=== PATIENT | male | born 1940 | race Caucasian/White ===

== ENCOUNTER 2018-05-10 18:34 | Day surgery (SDC) | payer MEDICARE, BC ==
[2018-05-10] MEDS ORDERED: Sodium Chloride 0.9% 10 ML Syringe FLUSH PRN (19:10)
[2018-05-10] MEDS ORDERED: Glucagon,Human Recombinant 1 MG Vial IVPUSH ONE (19:10)
[2018-05-10] MEDS ORDERED: LORazepam 2 MG/ML SDV IVPUSH ONE (19:10)
--- NOTE | 2018-05-10 20:19 | EDM.PDOC ---
ED HPI GENERAL MEDICAL PROBLEM - General Chief Complaint: Gastrointestinal Problem Stated Complaint: SOMETHING INT THROAT Time Seen by Provider: 05/10/18 18:45 Source of Information: Reports: Patient History Limitations: Reports: No Limitations - History of Present Illness INITIAL COMMENTS - FREE TEXT/NARRATIVE: 77-year-old male sent from [facility] for evaluation and treatment of impacted food bolus. Reportedly the patient had some steak around 1300 today. Since then he has been experiencing a sensation that he describes as something being stuck in his throat. He has been unable to swallow secretions. Was seen at the [facility] and referred to us. Surgeon was made aware. Asked that he be seen in the ER for IV Ativan and glucagon. Upon my inspection the patient is not spitting up any secretions. he states that the sensation is improved. He denies any chest pain or trouble breathing at this point. Reports since leaving [facility] about an hour and a half ago the symptoms have improved. Patient reports he has never had anything like this before. He has never had an EGD before. Onset: Today, Sudden - Related Data Allergies Allergy/AdvReac Type Severity Reaction Status Date / Time No Known Allergies Allergy Verified 05/10/18 18:42 Home Meds: Home Meds Aspirin [Adult Low Dose Aspirin EC] 81 mg PO DAILY 05/10/18 [History] Past Medical History HEENT History: Reports: Cataract - Past Surgical History Other Musculoskeletal Surgeries/Procedures:: archilles tendon repair Social & Family History - Tobacco Use Smoking Status *Q: Never Smoker - Caffeine Use Caffeine Use: Reports: Tea - Recreational Drug Use Recreational Drug Use: No ED ROS GENERAL - Review of Systems Review Of Systems: See Below Respiratory: Denies: Shortness of Breath Cardiovascular: Denies: Chest Pain GI/Abdominal: Reports: Other (earlier was unable to swallow secretions, now improved) ED EXAM, GI/ABD - Physical Exam Exam: See Below Exam Limited By: No Limitations General Appearance: Alert, WD/WN, No Apparent Distress Neck: Normal Inspection Respiratory/Chest: No Respiratory Distress, Lungs Clear, Normal Breath Sounds Cardiovascular: Normal Peripheral Pulses, Regular Rate, Rhythm, No Murmur GI/Abdominal Exam: Soft, Non-Tender Neurological: Alert, Oriented, Normal Cognition Psychiatric: Normal Affect, Normal Mood Skin Exam: Warm, Dry, Normal Color Course - Vital Signs Last Recorded V/S: Last Vital Signs Temp 99.0 F 05/10/18 22:20 Pulse 73 05/10/18 21:56 Resp 18 05/10/18 22:20 BP 142/89 H 05/10/18 22:20 Pulse Ox 94 L 05/10/18 22:20 - Orders/Labs/Meds Orders: Active Orders 24 hr Category Date Time Status Patient Status [ADT] Routine ADT 05/10/18 20:24 Active Communication Order [RC] ROUTINE Care 05/10/18 21:55 Active Cooling Warming Measures [RC] ASDIRECTED Care 05/10/18 21:55 Active Notify Provider [RC] ASDIRECTED Care 05/10/18 21:55 Active Oxygen Therapy [RC] ASDIRECTED Care 05/10/18 21:55 Active Peripheral IV Care [RC] . DIRECTED Care 05/10/18 19:10 Active Pulse Oximetry [RC] ASDIRECTED Care 05/10/18 21:55 Active Ready for Discharge [RC] PER UNIT ROUTINE Care 05/10/18 21:57 Active Vital Signs [RC] Q15M Care 05/10/18 21:55 Active Sodium Chloride 0.9% [Saline Flush] Med 05/10/18 19:10 Active 10 ml FLUSH ASDIRECTED PRN fentaNYL [Sublimaze] Med 05/10/18 21:55 Active 50 mcg IVPUSH Q5M PRN Peripheral IV Insertion Adult [OM.PC] Routine Oth 05/10/18 19:10 Ordered Schedule Procedure [COMM] Stat Oth 05/10/18 20:23 Ordered Medication Orders Fentanyl (Sublimaze) 50 mcg IVPUSH Q5M PRN PRN Reason: Pain Sodium Chloride (Saline Flush) 10 ml FLUSH ASDIRECTED PRN PRN Reason: Keep Vein Open Last Admin: 05/10/18 19:20 Dose: 10 ml Meds: Medications Generic Name Dose Route Start Last Admin Trade Name Freq PRN Reason Stop Dose Admin Fentanyl 50 mcg 05/10/18 21:55 Sublimaze IVPUSH Q5M PRN Pain Sodium Chloride 10 ml 05/10/18 19:10 05/10/18 19:20 Saline Flush FLUSH 10 ml ASDIRECTED PRN Administration Keep Vein Open Discontinued Medications Generic Name Dose Route Start Last Admin Trade Name Freq PRN Reason Stop Dose Admin Fentanyl Confirm 05/10/18 20:42 Sublimaze Administered 05/10/18 20:43 Dose 100 mcg .ROUTE .STK-MED ONE Glucagon 1 mg 05/10/18 19:10 05/10/18 19:20 Glucagen IVPUSH 05/10/18 19:11 1 mg ONETIME ONE Administration Lidocaine HCl Confirm 05/10/18 20:42 Xylocaine-Mpf 1% Administered 05/10/18 20:43 Dose 4 mls @ as directed .ROUTE .STK-MED ONE Lorazepam 1 mg 05/10/18 19:10 05/10/18 19:20 Ativan IVPUSH 05/10/18 19:11 1 mg ONETIME ONE Administration Ondansetron HCl Confirm 05/10/18 20:42 Zofran Administered 05/10/18 20:43 Dose 4 mg .ROUTE .STK-MED ONE Propofol Confirm 05/10/18 20:42 Diprivan 20 Ml Administered 05/10/18 20:43 Dose 200 mg .ROUTE .STK-MED ONE Rocuronium [place] Confirm 05/10/18 20:42 Zemuron Administered 05/10/18 20:43 Dose 50 mg .ROUTE .STK-MED ONE Succinylcholine Chloride Confirm 05/10/18 20:42 Succinylcholine In Ns Pf Administered 05/10/18 20:43 Dose 100 mg .ROUTE .STK-MED ONE - Re-Assessments/Exams Free Text/Narrative Re-Assessment/Exam: 05/10/18 20:29 Patient was given some Sprite to Sip on. He states that he can feel that it was fizzling in his chest and he began to spit up. He was then given an IV and some Ativan and glucagon and encouraged to try the Sprite about 20 to 30 minutes later. He could still not swallow Sprite. This was discussed with Dr. Hardwick who was already aware of the case. she'll take the OR for an EGD for an impacted food bolus. Departure - Departure Time of Disposition: 20:30 Disposition: DC/Tfer to [facility] Condition: Fair Clinical Impression: Food impaction of esophagus - Discharge Information *PRESCRIPTION DRUG MONITORING PROGRAM REVIEWED*: No *COPY OF PRESCRIPTION DRUG MONITORING REPORT IN PATIENT RADHA: No - My Orders Last 24 Hours: My Active Orders 05/10/18 19:10 Peripheral IV Care [RC] . DIRECTED Sodium Chloride 0.9% [Saline Flush] 10 ml FLUSH ASDIRECTED PRN Peripheral IV Insertion Adult [OM.PC] Routine - Assessment/Plan Last 24 Hours: My Active Orders 05/10/18 19:10 Peripheral IV Care [RC] . DIRECTED Sodium Chloride 0.9% [Saline Flush] 10 ml FLUSH ASDIRECTED PRN Peripheral IV Insertion Adult [OM.PC] Routine
--- NOTE | 2018-05-10 20:32 | PCM.PREANE ---
Preanesthetic Assessment - Anesthesia/Transfusion/Family Hx Anesthesia History: Prior Anesthesia Without Reaction Family History of Anesthesia Reaction: No Transfusion History: No Prior Transfusion(s) - Review of Systems General: Malaise Pulmonary: No Symptoms Cardiovascular: No Symptoms Gastrointestinal: Abdominal Pain Neurological: No Symptoms Other: Reports: Throat Pain - Physical Assessment NPO Status Date: 05/10/18 NPO Status Time: 13:00 Pulse: 73 O2 Sat by Pulse Oximetry: 100 Respiratory Rate: 12 Blood Pressure: 165/87 Temperature: 36.9 C Vital Signs: Last Vital Signs Temp 36.9 C 05/10/18 18:42 Pulse 73 05/10/18 18:42 Resp 12 05/10/18 18:42 BP 165/87 H 05/10/18 18:42 Pulse Ox 100 05/10/18 18:42 Height: 1.73 m Weight: 84.368 kg ASA Class: 2 Mental Status: Alert & Oriented x3 Airway Class: Mallampati = 2 Dentition: Reports: Partial (top), Missing Tooth/Teeth Thyro-Mental Finger Breadths: 3 Mouth Opening Finger Breadths: 2 ROM/Head Extension: Full Lungs: Clear to Auscultation, Normal Respiratory Effort Cardiovascular: Regular Rate, Regular Rhythm - Allergies Allergies/Adverse Reactions: Allergies Allergy/AdvReac Type Severity Reaction Status Date / Time No Known Allergies Allergy Verified 05/10/18 18:42 - Blood Blood Available: No Product(s) Available: None - Anesthesia Plan Pre-Op Medication Ordered: None - Acknowledgements Anesthesia Type Planned: General Anesthesia Pt an Appropriate Candidate for the Planned Anesthesia: Yes Alternatives and Risks of Anesthesia Discussed w Pt/Guardian: Yes Pt/Guardian Understands and Agrees with Anesthesia Plan: Yes PreAnesthesia Questionnaire HEENT History: Reports: Cataract - Past Surgical History Other Musculoskeletal Surgeries/Procedures:: archilles tendon repair - SUBSTANCE USE Smoking Status *Q: Never Smoker Tobacco Use Within Last Twelve Months: No Second Hand Smoke Exposure: No Days Per Week of Alcohol Use: 1 Number of Drinks Per Day: 0 Total Drinks Per Week: 0 Recreational Drug Use History: No - HOME MEDS Home Medications: Home Meds Aspirin [Adult Low Dose Aspirin EC] 81 mg PO DAILY 05/10/18 [History] - CURRENT (IN HOUSE) MEDS Current Meds: Current Medications Sodium Chloride (Saline Flush) 10 ml FLUSH ASDIRECTED PRN PRN Reason: Keep Vein Open Last Admin: 05/10/18 19:20 Dose: 10 ml Discontinued Medications Glucagon (Glucagen) 1 mg IVPUSH ONETIME ONE Stop: 05/10/18 19:11 Last Admin: 05/10/18 19:20 Dose: 1 mg Lorazepam (Ativan) 1 mg IVPUSH ONETIME ONE Stop: 05/10/18 19:11 Last Admin: 05/10/18 19:20 Dose: 1 mg
--- NOTE | 2018-05-10 20:37 | PCM.HP ---
H&P History of Present Illness - General Date of Service: 05/10/18 Admit Problem/Dx: Admission Diagnosis/Problem Admission Diagnosis/Problem Foreign body in digestive tract Source of Information: Patient, Provider History Limitations: Reports: No Limitations - History of Present Illness Initial Comments - Free Text/Narative: The patient is a 77-year-old gentleman who presents from an outside facility. He reports having Salad and steak earlier today, after which he felt it became lodged in his esophagus. He is having discomfort in the substernal area. This occurs when he attempts to eat or drink anything. When he tries to drink fluids , he has regurgitation and coughing. He was feeling fine before this episode occurred. He has no previous episodes similar to this - Related Data Allergies/Adverse Reactions: Allergies Allergy/AdvReac Type Severity Reaction Status Date / Time No Known Allergies Allergy Verified 05/10/18 18:42 Home Medications: Home Meds Aspirin [Adult Low Dose Aspirin EC] 81 mg PO DAILY 05/10/18 [History] Past Medical History HEENT History: Reports: Cataract - Past Surgical History Other Musculoskeletal Surgeries/Procedures:: archilles tendon repair Social & Family History - Family History Oncologic: Reports: Colon, Leukemia - Tobacco Use Smoking Status *Q: Never Smoker - Caffeine Use Caffeine Use: Reports: Tea - Recreational Drug Use Recreational Drug Use: No H&P Review of Systems - Review of Systems: Review Of Systems: See Below General: Reports: No Symptoms HEENT: Reports: No Symptoms Pulmonary: Reports: No Symptoms Cardiovascular: Reports: No Symptoms Gastrointestinal: Reports: Other (see HPI) Genitourinary: Reports: No Symptoms Musculoskeletal: Reports: Foot Pain Skin: Reports: No Symptoms Neurological: Reports: No Symptoms Exam - Exam Exam: See Below - Vital Signs Vital Signs: Last Vital Signs Temp 36.9 C 05/10/18 18:42 Pulse 73 05/10/18 18:42 Resp 12 05/10/18 18:42 BP 165/87 H 05/10/18 18:42 Pulse Ox 100 05/10/18 18:42 Weight: 84.368 kg - Exam Quality Assessment: No: Supplemental Oxygen General: Alert, Oriented HEENT: Conjunctiva Clear, EOMI Neck: Supple Lungs: Normal Respiratory Effort GI/Abdominal Exam: Soft, Non-Tender, No Distention Extremities: Normal Inspection Neurological: Cranial Nerves Intact Neuro Extensive - Mental Status: Alert, Oriented x3, Normal Mood/Affect *Q Meaningful Use (ADM) - VTE Risk Assess *Q Each Risk Factor Represents 1 Point: Minor Surgery Planned Total Score 1 Point Risk Factors: 1 Each Risk Factor Represents 3 Points: Age 75 Years or Greater Total Score 3 Point Risk Factors: 3 Problem List Initiated/Reviewed/Updated: Yes Orders Last 24hrs: Active Orders 24 hr Category Date Time Status Patient Status [ADT] Routine ADT 05/10/18 20:24 Active Peripheral IV Care [RC] . DIRECTED Care 05/10/18 19:10 Active Sodium Chloride 0.9% [Saline Flush] Med 05/10/18 19:10 Active 10 ml FLUSH ASDIRECTED PRN Peripheral IV Insertion Adult [OM.PC] Routine Oth 05/10/18 19:10 Ordered Schedule Procedure [COMM] Stat Oth 05/10/18 20:23 Ordered Medication Orders Sodium Chloride (Saline Flush) 10 ml FLUSH ASDIRECTED PRN PRN Reason: Keep Vein Open Last Admin: 05/10/18 19:20 Dose: 10 ml Assessment/Plan Comment:: 77 y/o gentleman with foreign body in the esophagus - plan for EGD with intervention to retrieve foreign body. Risk of perforation discussed, written consent obtained. - Based on findings from the procedure, we will decide patient needs further workup - NPO Lyndsey Nava MD General Surgery
[2018-05-10] MEDS ORDERED: Ondansetron 4 MG/2 ML SDV ONE (20:42)
[2018-05-10] MEDS ORDERED: Lidocaine 1% 4 ML ONE (20:42)
[2018-05-10] MEDS ORDERED: fentaNYL 100 MCG/2 ML SDV ONE (20:42)
[2018-05-10] MEDS ORDERED: Propofol 200 MG/20 ML SDV ONE (20:42)
[2018-05-10] MEDS ORDERED: Rocuronium 50 MG/5 ML Vial ONE (20:42)
[2018-05-10] MEDS ORDERED: Succinylcholine/Normal Saline 100 MG/5 ML Syringe ONE (20:42)
--- NOTE | 2018-05-10 21:44 | PCM.OPNOTE ---
- General Post-Op/Procedure Note Date of Surgery/Procedure: 05/10/18 Operative Procedure(s): EGD with biopsy and foreign body retrieval Findings: 1. Esophagitis 2. Gastritis 3. Duodenopathy 4. Esophageal foreign body Pre Op Diagnosis: Esophageal foreign body Post-Op Diagnosis: Esophageal foreign body with gastritis and duodenopathy Anesthesia Technique: General ET Tube Primary Surgeon: Lyndsey Nava Anesthesia Provider: Agus Godinez Pathology: 1. Duodenum 2. Gastric antrum Fluid Replacement, Intraop: 1,000 Output, Urine Amount: 0 EBL in mLs: 0 Complications: none apparent Condition: Good
--- NOTE | 2018-05-10 21:51 | PCM.PRNOTE ---
- Free Text/Narrative Note: Operative Report Date of procedure: May 10, 2018 Preoperative diagnosis: Esophageal foreign body Postoperative diagnosis: Esophageal foreign body with gastritis and duodenitis Surgeon: Lyndsey Nava M.D. Procedure: EGD with biopsy and retrieval foreign body Anesthesia: General ET Anesthesiologist: Agus Godinez CRNA IV fluids: 1000 mL Estimated blood loss: 0 mL Specimens: 1. Duodenum 2. Gastric antrum for H. pylori Indication: The patient is a 77 -year-old gentleman who presented with symptoms of a foreign body in his esophagus after eating earlier today. The patient was consented for an EGD with intervention. Risk of bleeding and perforation were discussed. The patient's consent was obtained Description of the procedure: The patient was taken to the endoscopy suite and placed on hemodynamic monitoring. The nurse sawmill manager induced general anesthesia and intubated the patient. A bite block was placed. The patient was positioned in the left lateral decubitus position. A timeout was performed. The endoscope was gently placed into the mouth to the back of the pharynx and introduced into the esophagus. The scope was gently advanced under direct visualization down where we visualized a foreign body. This was consistent with the patient's story that he had ingested piece of meat. A hexagonal snare was used to grasp the median withdrawn. The mouth. We then reinserted the scope and attempted to push the remaining food bolus into the stomach. It was at this time, we noticed a small mucosal rent. We then proceeded to grasp the second food piece with the hexagonal snare, and it was withdrawn. This was an approximately 4 x 0.5 cm piece of meat. The scope was then reinserted into the stomach. It was a large amount of fluid in stomach, which was suctioned. There was linear gastritis consistent with mild erosion and erythema. The gastric antrum was biopsied using cold biopsy forceps for H. pylori. The duodenum was entered and there was diffuse to adenopathy with erythema and mild erosions. There was no laine ulceration. A biopsy was taken of the duodenal mucosa also. Again inspected the stomach and did not note any residual abnormality. The scope was withdrawn and there was esophagitis noted at the GE junction. The area of previous mucosal injury was hemostatic without signs of deep injury. A final piece of foreign body was grasped withdrawn. The scope was reinserted one final time to inspect the area. There was no residual foreign body. There was noted some esophagitis with petechiae in the mid to upper esophagus. The procedure was terminated. the patient tolerated the procedure well without any evidence of complications. Instructions: The patient will be instructed to maintain a full liquid diet for the next 48 hours. After that time, he may resume regular diet with adequate chewing. Will follow up in my office in 2 weeks Lyndsey Nava MD General Surgery
[2018-05-10] MEDS ORDERED: fentaNYL 100 MCG/2 ML SDV IVPUSH PRN (21:55)
--- NOTE | 2018-05-10 21:56 | PCM.POSTAN ---
POST ANESTHESIA ASSESSMENT - MENTAL STATUS Mental Status: Alert, Oriented - VITAL SIGNS Pulse Rate: 73 SaO2: 90 Resp Rate: 18 Blood Pressure: 144/82 Temperature: 37.3 C - RESPIRATORY Respiratory Status: Respiratory Rate WNL, Airway Patent, O2 Saturation Stable, Supplemental Oxygen - CARDIOVASCULAR CV Status: Pulse Rate WNL, Blood Pressure Stable - GASTROINTESTINAL GI Status: No Symptoms - PAIN Pain Score: 0 - POST OP HYDRATION Hydration Status: Adequate & Stable - OBSERVATIONS Free Text/Narrative:: no anesthesia complications noted
--- NOTE | 2018-05-11 08:45 | CR ---
Chest: Frontal view of the chest was obtained utilizing portable technique. Comparison: No previous chest x-ray. Heart size is enlarged. Widened upper mediastinum is seen most likely due to tortuous great vessels. Mild tortuosity of the thoracic aorta is seen. Slight parenchymal density is noted within the left retrocardiac region. Lungs otherwise are clear. Bony structures are grossly intact. Impression: 1. Increased parenchymal density within the left base. Findings may represent atelectasis, chronic scarring as well as change from aspiration or pneumonia. Difficult to exclude small left-sided pleural effusion. 2. Mild cardiomegaly and other incidental findings. Diagnostic code #3 I agree with preliminary report from [facility], finalized on 05/11/18, 12:27 AM Central Time
== END 2018-05-10 22:51 | disposition home or self-care (01) ==
LOC: JD.ED 18:34 → JD.SDS 20:16
PROVIDERS: ATTEND Surgery
DX: T18.128A Food in esophagus causing other injury, initial encounter (principal); K29.50 Unspecified chronic gastritis without bleeding; K29.80 Duodenitis without bleeding; K20.9 Esophagitis, unspecified; X58.XXXA Exposure to other specified factors, initial encounter
CPT/HCPCS: 43239; 43247; 71045; 96374; 96375; 99285; J0330; J1610; J2001; J2060; J2405; J2704; J3010; 00731